=== PATIENT | female | born 1975 | race African-American/Black ===

== ENCOUNTER 2017-12-08 10:49 | Emergency (ER) | payer MEDICAID ==
[~2017-12-08] VITALS: Ht 162.6 cm; Wt 50.0 kg
[2017-12-08] MEDS ORDERED: KETOROLAC 60MG/2ML VIAL IM STA (12:04)
[2017-12-08 14:00] VITALS: BP 135/84
== END 2017-12-08 14:01 | disposition home or self-care (01) ==
LOC: ER 10:50
DX: M25.512 Pain in left shoulder (principal); M25.511 Pain in right shoulder; M79.1 Myalgia; M47.892 Other spondylosis, cervical region; V43.52XA Car driver injured in collision with other type car in traffic accident, initial encounter; Y93.89 Activity, other specified; Y92.488 Other paved roadways as the place of occurrence of the external cause
CPT/HCPCS: 72040; 73030; 73090; 81025; 96372; 99284; J1885